=== PATIENT | female | born 1950 | race Caucasian/White ===

== ENCOUNTER 2021-08-14 13:36 | Emergency (ER) | payer OTHER ==
[~2021-08-14] VITALS: Ht 154.9 cm; Wt 51.7 kg
[2021-08-14 13:37] VITALS: BP 148/55
[2021-08-14 14:35] LABS: URINE BILIRUBIN NEGATIVE (Negative); URINE BLOOD NEGATIVE (Negative); URINE CLARITY CLEAR; URINE COLOR YELLOW; URINE GLUCOSE-RANDOM* NEGATIVE (Negative); URINE KETONES NEGATIVE (Negative); URINE LEUKOCYTES-REFLEX NEGATIVE (Negative); URINE NITRITE-REFLEX NEGATIVE (Negative); URINE PROTEIN (DIPSTICK) NEGATIVE (Negative); URINE UROBILINOGEN 0.2 E.U./dl (0.2-1.0)
[2021-08-14] MEDS ORDERED: IBUPROFEN 800800 MG PO (15:27)
[2021-08-14] MEDS ORDERED: FLEXERIL PO (15:27)
== END 2021-08-14 15:36 | disposition home or self-care (01) ==
LOC: ER 13:36
PROVIDERS: Emergency Medicine
DX: M54.41 Lumbago with sciatica, right side (principal); M19.90 Unspecified osteoarthritis, unspecified site; E03.9 Hypothyroidism, unspecified

== ENCOUNTER 2021-08-16 22:03 | Emergency (ER) | payer OTHER ==
[~2021-08-16] VITALS: Ht 154.9 cm; Wt 51.7 kg
[~2021-08-16 22:03] MED LIST: FLEXERIL PO; IBUPROFEN 800800 MG PO
[2021-08-16 22:09] VITALS: BP 171/79
[2021-08-16] MEDS ORDERED: MEDROLDOSEPACK PO (22:38)
[2021-08-16] MEDS ORDERED: TIZANIDINE HCL2 M1 PO (22:38)
== END 2021-08-16 22:54 | disposition home or self-care (01) ==
LOC: ER 22:03
DX: M54.41 Lumbago with sciatica, right side (principal); M19.90 Unspecified osteoarthritis, unspecified site; E03.9 Hypothyroidism, unspecified